=== PATIENT | female | born 1965 | race Caucasian/White ===

== ENCOUNTER 2018-11-17 13:45 | Observation (INO) | payer BC, OTHER ==
[~2018-11-17] VITALS: Ht 157.5 cm; Wt 72.6 kg
[~2018-11-17 13:45] MED LIST: BYSTOLIC10 MG PO; LOSARTAN POTAS100 MG PO
[2018-11-17 14:36] LABS: BASOPHILS # (AUTO) 0.1 (0.0-0.1); BASOPHILS % 0.6 % (0.0-1.0); EOSINOPHILS # (AUTO) 0.7 (0.0-0.4); EOSINOPHILS % 4.2 % (0.0-6.0); HEMATOCRIT 45.8 % (34.2-44.1); HEMOGLOBIN 15.5 g/dL (12.0-16.0); LYMPHOCYTES # (AUTO) 4.2 (1.0-3.2); LYMPHOCYTES % 23.7 % (18.0-39.1); MEAN CORPUSCULAR HEMOGLOBIN 31.1 pg (28-32); MEAN CORPUSCULAR HGB CONC 33.8 g/dL (31-35); MONOCYTES % 5.9 % (4.4-11.3); NEUTROPHILS # (AUTO) 11.6 (2.1-6.9); NEUTROPHILS % 65.1 % (38.7-80.0); PLATELET COUNT 294 x10e3/uL (140-360); RED BLOOD COUNT 4.98 x10e6/uL (3.6-5.1); RED CELL DISTRIBUTION WIDTH 12.7 % (11.7-14.4)
[2018-11-17 14:46] LABS: AMYLASE 45 U/L (25-125); LIPASE 22 U/L (8-78)
[2018-11-17 14:48] LABS: ALANINE AMINOTRANSFERASE 22 IU/L (0-55); ALBUMIN 4.6 g/dL (3.5-5.0); ALBUMIN/GLOBULIN RATIO 1.5 (0.8-2.0); ALKALINE PHOSPHATASE 84 IU/L (40-150); ANION GAP 13.7 mmol/L (8-16); BLOOD UREA NITROGEN 7 mg/dL (7-26); BUN/CREATININE RATIO 9 (6-25); CALCIUM 9.9 mg/dL (8.4-10.2); CARBON DIOXIDE 27 mmol/L (22-29); CHLORIDE 103 mmol/L (98-107); CREATININE, SERUM 0.81 mg/dL (0.57-1.11); EST GLOMERULAR FILTRATION RATE > 60 ML/MIN (60-); GLUCOSE 89 mg/dL (74-118); POTASSIUM 3.7 mmol/L (3.5-5.1); SODIUM 140 mmol/L (136-145)
[2018-11-17 14:56] LABS: BILIRUBIN,URINE NEGATIVE (NEGATIVE); CLARITY,URINE CLEAR (CLEAR); COLOR,URINE YELLOW (YELLOW); KETONES,URINE NEGATIVE (NEGATIVE); LEUKOCYTE ESTERASE ,URINE NEGATIVE (NEGATIVE); NITRITE,URINE NEGATIVE (NEGATIVE); PROTEIN,URINE DIPSTICK NEGATIVE (NEGATIVE); URINE UROBILINOGEN 0.2 mg/dL (0.2 - 1)
[2018-11-17 14:57] LABS: BACTERIA,URINE FEW /HPF; EPITHELIAL CELLS,URINE FEW /LPF; RBC,URINE 0-5 /HPF (0-5); WBC,URINE (MAN) 0-5 /HPF (0-5)
[2018-11-17] MEDS ORDERED: MORPHINE SULFATE 2 MG/ML SYR 1ML IV STA (16:04)
[2018-11-17] MEDS ORDERED: ONDANSETRON HCL INJ 2MG/ML 2ML 2 MG/ML VIAL IV STA (16:04)
--- NOTE | 2018-11-17 16:08 | Diagnostic Imaging Report ---
PROCEDURE: CT ABDOMEN AND PELVIS WITH CONTRAST TECHNIQUE: The abdomen and pelvis were scanned utilizing a multidetector helical scanner from the diaphragm to the lesser trochanter after the IV administration of 100 cc Isovue 370. Coronal and sagittal multiplanar reformations were obtained. COMPARISON: 05/20/2015. INDICATIONS: FLANK PAIN FINDINGS: LOWER THORAX: Right middle lobe linear paramediastinal scar unchanged. Lung bases are otherwise unremarkable. No pleural or pericardial effusion. HEPATOBILIARY: No focal hepatic lesion or intrahepatic biliary ductal dilatation. The gallbladder is collapsed but otherwise unremarkable. SPLEEN: No splenomegaly. PANCREAS: No focal masses or ductal dilatation. ADRENALS: No adrenal nodules. KIDNEYS/URETERS: No hydronephrosis, stones, or solid mass lesions. PELVIC ORGANS/BLADDER: Urinary bladder is unremarkable. Uterus is not identified and has presumably been removed. No adnexal mass. PERITONEUM / RETROPERITONEUM: No ascites. No pneumoperitoneum. LYMPH NODES: No pelvic sidewall, retroperitoneal, or mesenteric lymphadenopathy. VESSELS: The abdominal aorta, major branch vessels, and iliac arterial systems are patent without aneurysmal dilatation. Single right renal artery and 2 left renal arteries. Right hepatic artery is replaced to the superior mesenteric artery. Portal vein, splenic vein, and central superior mesenteric vein are patent. GI TRACT: The large bowel shows no evidence of distention or wall thickening. The appendix is normal. The stomach is collapsed with prominent rugal folds. There is no small bowel dilatation to suggest obstruction. BONES AND SOFT TISSUES: No focal soft tissue abnormalities. No osseous destructive lesions. IMPRESSION: No acute intra-abdominal or pelvic CT abnormalities. Normal appendix. Dictated by: Zion Sanchez M.D. on 11/17/2018 at 16:12 Electronically approved by: Zion Sanchez M.D. on 11/17/2018 at 16:12
[2018-11-17] MEDS ORDERED: MORPHINE SULFATE INJ 4 MG/ML INJ 1ML IV ONE (16:15)
[2018-11-17] MEDS ORDERED: METRONIDAZOLE 500MG/NS 100ML IV SCH (16:45)
[2018-11-17] MEDS ORDERED: PIPER-TAZ 3.375 GM / NS 50ML IV SCH (16:45)
[2018-11-17] MEDS ORDERED: MORPHINE SULFATE 2 MG/ML SYR 1ML IV PRN (16:45)
[2018-11-17] MEDS: MORPHINE SULFATE INJ 4 MG/ML INJ 1ML IV PRN ×2 (16:51→20:20)
[2018-11-17] MEDS: PIPER-TAZ 3.375 GM 50 ML IV SCH ×2 (16:52→23:56)
[2018-11-17] MEDS: SODIUM CHLORIDE 0.9% 1000ML 1,000 ML IV SCH (16:52)
[2018-11-17] MEDS ORDERED: CLONAZEPAM0.5 MG PO (17:15)
--- OUTSIDE RECORDS SUMMARY | 2018-11-17 17:48 | XMS REPORT ---
Author Author [facility] Address Unknown Phone Unavailable Care Team Providers Care Optimization Analyst Name Role Phone Cade PLUMMER Unavailable Unavailable Problems This patient has no known problems. Allergies, Adverse Reactions, Alerts This patient has no known allergies or adverse reactions. Medications This patient has no known medications. Results Test Description Test Time Test Comments Text Results Atomic Results Result Comments CT ABDOMEN/PELVIS W 2018-11-17 16:12:00 [facility] [address] [address] Patient Name: DIONICIO MARK MR #: [id number] : 1965 Age/Sex: 53/F Req #: [id number] Adm Physician: Ordered by: MARU WHITLEY NP Report #: [id number] Location: ER Room/Bed: Procedure: CT/CT ABDOMEN/PELVIS W Exam Date: 11/17/18 Exam Time: 1510 REPORT STATUS: Signed PROCEDURE: CT ABDOMEN AND PELVIS WITH CONTRAST TE CHNIQUE: The abdomen and pelvis were scanned utilizing a multidetector helical scanner from the diaphragm to the lesser trochanter after the IV administration of 100 cc Isovue 370. Coronal and sagittal multiplanar reformations were obtained. COMPARISON: 05/20/2015. INDICATIONS: FLANK PAIN FINDINGS: LOWER THORAX: Right middle lobe linear paramediastinal scar unchanged. Lung bases are otherwise unremarkable. No pleural or pericardial effusion. HEPATOBILIARY: No focal hepatic lesion or intrahepatic biliary ductal dilatation. The gallbladder is collapsed but otherwise unremarkable. SPLEEN: No splenomegaly. PANCREAS: No focal masses or ductal dilatation. ADRENALS: No adrenal nodules. KIDNEYS/URETERS: No hydronephrosis, stones, or solid mass lesions. PELVIC ORGANS/BLADDER: Urinary bladder is unremarkable. Uterus is not identified and has presumably been removed. No adnexal mass. PERITONEUM / RETROPERITONEUM: No ascites. No pneumoperitoneum. LYMPH NODES: No pelvic sidewall, retroperitoneal, or mesenteric lymphadenopathy. VESSELS: The abdominal aorta, major branch vessels, and iliac arterial systems are patent without aneurysmal dilatation. Single right renal artery and 2 left renal arteries. Right hepatic artery is replaced to the superior mesenteric artery. Portal vein, splenic vein, and central superior mesenteric vein are patent. GI TRACT: The large bowel shows no evidence of distention or wall thickening. The appendix is normal. The stomach is collapsed with prominent rugal folds. There is no small bowel dilatation to suggest obstruction. BONES AND SOFT TISSUES: No focal soft tissue abnormalities. No osseous destructive lesions. IMPRESSION: No acute intra-abdominal or pelvic CT abnormalities. Normal appendix. Dictated by: Tamela Alvares M.D. on 11/17/2018 at 16:12 Electronically approved by: Tamela Alvares M.D. on 11/17/2018 at 16:12 Dictated By: TAMELA ALVARES MD [id number] Transcribed By: MARYLIN on 11/17/18 1612 COPY TO: MARU WHITLEY NP
[2018-11-17] MEDS ORDERED: SODIUM CHLORIDE 0.9% 50ML 50 ML ONE (17:52)
[2018-11-17] MEDS ORDERED: IOPAMIDOL 370 MG/ML 200 ML INFUS..BTL INJ ONE (17:52)
[2018-11-17] MEDS: METRONIDAZOLE 500MG/NS 100ML 100 ML IV SCH (18:01)
[2018-11-17 19:38] VITALS: BP 98/78
[2018-11-17 20:20] VITALS: BP 98/78
--- NOTE | 2018-11-17 20:28 | NUR ---
PATIENT C/O PAIN TO THE RIGHT LOWER ABDOMEN WITH PAIN SCORE #7, MEDICATED WITH MORPHINE ORDERED. NO RESPIRATORY DISTRESS OBSERVED, CALL LIGHT WITHIN EASY REACH. WILL REASSESS FOR EFFECTIVENESS OF THE MEDICATION.
[2018-11-17 21:00] VITALS: BP 98/78
[2018-11-17 23:28] VITALS: BP 92/67
[2018-11-17 23:38] VITALS: BP 139/81
--- NOTE | 2018-11-17 23:40 | NUR ---
BLOOD PRESSURE 98/78, HEART RATE 55. PATIENT IS WANTING MORPHINE FOR PAIN, SHE'S TOLD THAT THE BLOOD PRESSURE IS TOO LOW TO ADMINISTER AT THIS TIME FOR SAFETY REASONS.
[2018-11-18] VITALS (7 sets, daily range): BP systolic 92–129; BP diastolic 64–85
[2018-11-18] MEDS: METRONIDAZOLE 500MG/NS 100ML 100 ML IV SCH ×4 (00:42→17:52)
--- NOTE | 2018-11-18 03:35 | NUR ---
WALKING ROUNDS MADE, PATIENT OBSERVED SOUNDLY ASLEEP WITHOUT RESPIRATORY DISTRESS. CALL LIGHT WITHIN EASY REACH, NO SIGN OF PAIN NOTED.
[2018-11-18] MEDS: SODIUM CHLORIDE 0.9% 1000ML 1,000 ML IV SCH ×2 (04:26→12:36)
[2018-11-18 05:39] LABS: BASOPHILS # (AUTO) 0.1 (0.0-0.1); BASOPHILS % 0.7 % (0.0-1.0); EOSINOPHILS # (AUTO) 0.6 (0.0-0.4); EOSINOPHILS % 5.4 % (0.0-6.0); HEMATOCRIT 41.7 % (34.2-44.1); HEMOGLOBIN 13.8 g/dL (12.0-16.0); LYMPHOCYTES # (AUTO) 3.5 (1.0-3.2); LYMPHOCYTES % 34.2 % (18.0-39.1); MEAN CORPUSCULAR HEMOGLOBIN 30.6 pg (28-32); MEAN CORPUSCULAR HGB CONC 33.1 g/dL (31-35); MEAN CORPUSCULAR VOLUME 92.5 fL (81-99); MONOCYTES # (AUTO) 0.7 (0.2-0.8); MONOCYTES % 7.3 % (4.4-11.3); NEUTROPHILS # (AUTO) 5.3 (2.1-6.9); NEUTROPHILS % 52.1 % (38.7-80.0); PLATELET COUNT 235 x10e3/uL (140-360); RED BLOOD COUNT 4.51 x10e6/uL (3.6-5.1); RED CELL DISTRIBUTION WIDTH 12.8 % (11.7-14.4)
[2018-11-18 05:50] LABS: ALANINE AMINOTRANSFERASE 16 IU/L (0-55); ALBUMIN 3.8 g/dL (3.5-5.0); ALBUMIN/GLOBULIN RATIO 1.6 (0.8-2.0); ALKALINE PHOSPHATASE 64 IU/L (40-150); ANION GAP 11.5 mmol/L (8-16); BLOOD UREA NITROGEN 7 mg/dL (7-26); BUN/CREATININE RATIO 8 (6-25); CALCIUM 9.4 mg/dL (8.4-10.2); CARBON DIOXIDE 28 mmol/L (22-29); CHLORIDE 108 mmol/L (98-107); CREATININE, SERUM 0.84 mg/dL (0.57-1.11); EST GLOMERULAR FILTRATION RATE > 60 ML/MIN (60-); GLUCOSE 97 mg/dL (74-118); POTASSIUM 4.5 mmol/L (3.5-5.1); SODIUM 143 mmol/L (136-145)
[2018-11-18] MEDS: PIPER-TAZ 3.375 GM 50 ML IV SCH ×3 (05:52→17:10)
--- NOTE | 2018-11-18 05:52 | NUR ---
NO RESPIRATORY DISTRESS OBSERVED, BLOOD PRESSURE REASSESSED WITH READING OF 118/57, HEART RATE 68. PATIENT C/O MILD ABDOMINAL PAIN, SHE STATED SHE PREFERS THE PAIN MEDICATION BE ADMINISTER AT 0700.
[2018-11-18] MEDS: ONDANSETRON HCL INJ 2MG/ML 2ML 2 MG/ML VIAL IV PRN ×3 (06:28→18:38)
[2018-11-18] MEDS: MORPHINE SULFATE INJ 4 MG/ML INJ 1ML IV PRN ×3 (06:29→18:38)
--- NOTE | 2018-11-18 11:42 | NUR ---
patient back to unit via wheelchair after US of abdomen, alert and oriented with call lucio within reach
--- NOTE | 2018-11-18 11:54 | NUR ---
RECEIVED REPORT ON PATIENT. PATIENT IS IN STABLE CONDITION WITH NO S/S OF RESPIRATORY DISTRESS. PATIENT C/O RLQ PAIN. CALL LIGHT IS WITHIN REACH, PATIENT INSTRUCTED TO CALL FOR ASSISTANCE NEEDED.
--- NOTE | 2018-11-18 12:01 | Diagnostic Imaging Report ---
EXAM: Complete Abdominal Ultrasound INDICATION: ^r/o gallstones ^[id number] ^[id number] COMPARISON: CT dated 11/17/2018 TECHNIQUE: Transverse and longitudinal images of the upper abdomen were obtained. FINDINGS: Liver: Size: 14 cm in the right midclavicular line, normal Appearance: Normal echogenicity, smooth contour Mass: No focal masses Spleen: Size: 8.7 cm in length, normal Echogenicity: Normal Mass: No focal masses Gallbladder: Stones/Sludge: None Wall: 0.2 cm Appearance: No pericholecystic fluid or hydrops. Sonographic Moore's Sign: Negative Bile Ducts: Intrahepatic Ducts: No dilatation Extrahepatic Ducts: Common bile duct is not visualized. Pancreas: Visualized pancreas is unremarkable. Right Kidney: Size: 9.2 cm Echogenicity: Normal Parenchymal thickness: Normal Collecting System: No hydronephrosis Stone: None Cyst/Mass: None Left Kidney: Size: 9.4 cm Echogenicity: Normal Parenchymal thickness: Normal Collecting System: No hydronephrosis Stone: None Cyst/Mass: None Vessels: Aorta: Visualized portions are normal Inferior Vena Cava: Visualized portions are normal Main Portal Vein: 0.8 cm, normal size with hepatopetal flow. Free Fluid: No ascites or pleural effusion IMPRESSION: Unremarkable abdominal ultrasound. No cholelithiasis. Signed by: Dr. Seb Pacheco MD on 11/18/2018 11:58 AM
--- NOTE | 2018-11-18 18:48 | NUR ---
PATIENT IS IN STABLE CONDITION WITH NO S/S OF RESPIRATORY DISTRESS. PAIN MEDICATION RECENTLY ADMINISTERED TO PATIENT. IV FLUIDS INFUSING. CALL LIGHT IS WITHIN REACH, PATIENT INSTRUCTED TO CALL FOR ASSISTANCE NEEDED. REPORT GIVEN TO ONCOMING NURSE. CALL PLACED OUT TO DR. ALLEN (WHO IS COVERING FOR DR. ACHARYA) REGARDING PATIENT HAVING LIQUID BOWEL MOVEMENTS- AWAITING CALLBACK AND NIGHT NURSE INFORMED OF CALLOUT.
--- NOTE | 2018-11-18 19:13 | NUR ---
RECEIVED CALLBACK FROM DR. MILENA BENITEZ FOR STOOL SAMPLE AND IMODIUM PRN.
[2018-11-18] MEDS ORDERED: LOPERAMIDE HCL 2 MG CAP PO PRN (19:15)
--- NOTE | 2018-11-18 23:00 | NUR ---
Received patient from obs nurse, patient is alert and oriented, patient received pain med for pain in the stomach, patient is not in any form of distress, introduced self to patient, safety and fall precautions maintained as per hospital protocol: bed in lowest position and locked, needed items beside bed and call lucio placed close to patient, patient instructed to use it to call nurses for help, patient verbalized understanding. patient is currently stable will continue to monitor.
[2018-11-19] MEDS: PIPER-TAZ 3.375 GM 50 ML IV SCH ×2 (00:49→06:57)
[2018-11-19] MEDS: SODIUM CHLORIDE 0.9% 1000ML 1,000 ML IV SCH (00:49)
[2018-11-19] MEDS: METRONIDAZOLE 500MG/NS 100ML 100 ML IV SCH ×2 (00:50→06:57)
[2018-11-19 02:02] VITALS: BP 103/57
[2018-11-19 05:26] VITALS: BP 132/60
--- NOTE | 2018-11-19 07:23 | NUR ---
Patient endorsed to next shift for continuity of care.
--- NOTE | 2018-11-19 07:31 | NUR ---
Dr. Mcdonald was made aware of patient complain of head ache of 4 and he ordered for 650mg po q6hrs prn for pain 0f 4-7
[2018-11-19] MEDS ORDERED: ACETAMINOPHEN 325 MG TAB PO PRN (07:45)
[2018-11-19 08:00] VITALS: BP 120/72
--- NOTE | 2018-11-19 08:00 | NUR ---
Pt in bed with eyes open. Pt denies any pain at this time. Pt is asking what time physician will be here. Explained that physician has no set hours and will be here sometime today.
--- NOTE | 2018-11-19 09:00 | NUR ---
Pt had lots of questions related to time of physician arrival and plan of care. Explained plan of care to pt with IV fluids and IV antibiotics and some bowel rest. Explained to pt that physician will be here to see her but not sure what time. Pt seemed to be satisfied at this time.
[2018-11-19 12:00] VITALS: BP 143/64
--- NOTE | 2018-11-19 12:00 | NUR ---
Pt came to nursing station stating that she wants to have her IV removed because she is going home. Let pt know that I had paged physician to see what time he will be rounding today. Physician states it will be about two hours before physician is here. Pt states she is not waiting for physician and wants here IV out. Physican notified about AMA discharge. Pt shows not signs of distress at time of discharge. Denies any pain.
--- NOTE | 2018-11-19 12:00 | NUR ---
Pt signed AMA paperwork at time of discharge.
== END 2018-11-19 12:00 | disposition left against medical advice (07) ==
LOC: ER 13:45 → ERHOLD 16:36 → IMCU 18:15 → MED/SURG2 11-18 20:40
DX: R10.31 Right lower quadrant pain (principal); I10 Essential (primary) hypertension; F41.9 Anxiety disorder, unspecified; Z83.3 Family history of diabetes mellitus; Z82.49 Family history of ischemic heart disease and other diseases of the circulatory system; K44.9 Diaphragmatic hernia without obstruction or gangrene
CPT/HCPCS: 36415 ×2; 74177; 76700; 80053 ×2; 81001; 82150; 83690; 85025 ×2; 87493; 96365; 96367; 99284; G0378 ×3; J2270 ×2; J2405 ×2; J2543 ×3; J7030 ×3; Q9967